=== PATIENT | female | born 1965 | race Caucasian/White ===

== ENCOUNTER → 2021-08-16 | Outpatient (CLI) | payer BC ==
--- NOTE | 2021-08-17 11:29 | US ---
EXAMINATION TYPE: US pelvis complete transvag DATE OF EXAM: 08/16/2021 COMPARISON: NONE CLINICAL HISTORY: N93.9 ABN UTERINE AND VAGINAL BLEEDING. spotting no pregnancies TECHNIQUE: Transvaginal (TV) and Transabdominal (TA) . Transabdominal sonographic images of the pel vis were acquired. Transvaginal sonographic images were medically necessary to better assess the fol lowing anatomy: ovaries and uterus Date of LMP: 2 years ago EXAM MEASUREMENTS: Uterus: 6.4 x 2.9 x 3.0 cm Endometrial Stripe: .3 cm 1. Uterus: Anteverted wnl 2. Endometrium: wnl 3. Right Ovary: Obscured by overlying bowel gas 4. Left Ovary: Obscured by overlying bowel gas 5. Bilateral Adnexa: wnl 6. Posterior cul-de-sac: wnl IMPRESSION: 1. No suspicious ultrasound abnormality pelvic ultrasound
== END | disposition home or self-care (01) ==
LOC: RADUSWWP 15:35
PROVIDERS: ATTEND Family Medicine
DX: N93.9 Abnormal uterine and vaginal bleeding, unspecified (principal)
CPT/HCPCS: 76830; 76856

== ENCOUNTER → 2023-07-16 | Outpatient (CLI) | payer BC ==
--- NOTE | 2023-07-17 12:44 | US ---
EXAMINATION TYPE: US kidneys/renal and bladder DATE OF EXAM: 07/16/2023 COMPARISON: NONE CLINICAL INDICATION: Female, 58 years old with history of N18.9 CHRONIC KIDNEY DISEASE, UNSPECIFIED; Abnormal labs. No flank pain. EXAM MEASUREMENTS: Right Kidney: 8.4 x 4.7 x 4.2 cm Left Kidney: 9.8 x 5.0 x 4.6 cm Right Kidney: No hydronephrosis or masses seen Left Kidney: Multiple echogenic foci seen with largest mid lateral= 1.4 cm. Lateral inferior cortica l cystic lesion = 1.3 x 1.2 x 1.1 cm. Bladder: Distended, anechoic Bilateral Jets seen IMPRESSION: 1. No hydronephrosis. 2. Echogenic foci in the left kidney measuring up to 1.4 cm suggesting nonobstructive stones.
== END | disposition home or self-care (01) ==
LOC: RADUSWWP 15:20
PROVIDERS: ATTEND Family Medicine
DX: N28.89 Other specified disorders of kidney and ureter (principal); N18.9 Chronic kidney disease, unspecified
CPT/HCPCS: 76770